=== PATIENT | female | born 1995 | race Caucasian/White ===

== ENCOUNTER 2019-01-13 07:34 | Emergency (ER) | payer OTHER ==
--- NOTE | 2019-01-13 07:45 | ED ---
Abdominal Pain/Female - HPI Summary HPI Summary: A 23 y/o F who is afebrile presents to ED c/o non-radiating RUQ abd pain onset 0600 when she woke up. The pain has mostly resolved and is rated 1 out of 10 at bedside. At it's worst, the pain was a 6 out of 10. She denies n/v. [facility]: one month ago. Denies risk of . Denies PMHx. No surgeries. Non-smoker. No ETOH. No drugs. - History of Current Complaint Chief Complaint: EDAbdPain Stated Complaint: "ABD PAIN" PER PT Time Seen by Provider: 01/13/19 07:42 Hx Obtained From: Patient Onset/Duration: Lasting Hours, Still Present Timing: Constant Severity Initially: Moderate Severity Currently: Mild Pain Intensity: 1 - currently Pain Scale Used: 0-10 Numeric Location: Discrete At: RUQ Radiates: No Associated Signs and Symptoms: Negative: Nausea, Vomiting Allergies/Adverse Reactions: Allergies Allergy/AdvReac Type Severity Reaction Status Date / Time No Known Allergies Allergy Verified 01/13/19 07:53 Home Medications: Home Medications NK [No Home Medications Reported] 01/13/19 [History Confirmed 01/13/19] PMH/Surg Hx/FS Hx/Imm Hx Previously Healthy: Yes Sensory History: Denies: Hx Legally Blind, Hx Deafness Opthamlomology History: Denies: Hx Legally Blind EENT History: Denies: Hx Deafness Neurological History: Denies: Hx Dementia Infectious Disease History: No Infectious Disease History: Denies: Traveled Outside the [place] in Last 30 Days - Family History Known Family History: Positive: Hypertension, Other - ca Negative: Cardiac Disease, Diabetes - Social History Alcohol Use: None Hx Substance Use: No Hx Tobacco Use: No Review of Systems Negative: Fever Positive: Abdominal Pain. Negative: Vomiting, Nausea All Other Systems Reviewed And Are Negative: Yes Physical Exam - Summary Physical Exam Summary: VITAL SIGNS: Reviewed. GENERAL: Patient is a well-developed and nourished female who is lying comfortable in the stretcher. Patient is not in any acute respiratory distress. HEAD AND FACE: Normocephalic and atraumatic. EYES: PERRLA, EOMI x 2, No injected conjunctiva. EARS: Hearing grossly intact. Ear canals and tympanic membranes are WNL. MOUTH: Oropharynx within normal limits. NECK: Supple, trachea is midline, no adenopathy, no JVD. CHEST: Symmetric, no tenderness at palpation LUNGS: Clear to auscultation bilaterally. No wheezing or crackles. CVS: RRR, S1 and S2 present, no murmurs or gallops appreciated. ABDOMEN: Soft, RUQ tenderness. No signs of distention. Positive bowel sounds. No rebound, no guarding, and no masses palpated. No abdominal bruit or pulsations. EXTREMITIES: FROM in all major joints, no edema, no cyanosis or clubbing. NEURO: Alert and oriented x 3. No acute neurological deficits. Speech is normal. SKIN: Dry and warm Triage Information Reviewed: Yes Vital Signs On Initial Exam: Initial Vitals Temp Pulse Resp BP Pulse Ox 98.1 F 87 16 128/82 100 01/13/19 07:36 01/13/19 07:36 01/13/19 07:36 01/13/19 07:36 01/13/19 07:36 Vital Signs Reviewed: Yes Diagnostics - Vital Signs Vital Signs Temp Pulse Resp BP Pulse Ox 01/13/19 07:36 98.1 F 87 16 128/82 100 - Laboratory Result Diagrams: 01/13/19 07:56 01/13/19 07:56 Lab Statement: Any lab studies that have been ordered have been reviewed, and results considered in the medical decision making process. - Ultrasound No standard instances Ultrasound Interpretation Completed By: Radiologist Summary of Ultrasound Findings: GALLBLADDER US, IMPRESSION: Normal exam. Re-Evaluation - Re-Evaluation 1 Re-Evaluation Time: 09:25 Change: Improved Comment: Discussing results with patient and plan for discharge. Abdominal Pain Fem Course/Dx - Course Course Of Treatment: This patient is a 23-year-old female who presents to the emergency department with chief complaint of having right upper quadrant pain since this morning. She also reports that the symptoms have improved since this morning. Denies nausea or vomiting. IV access was obtained. We ordered blood work and an US report. Blood test results are without any significant abnormality. beta hCG is negative. Right upper quadrant ultrasound impression: Negative exam. Since the patient is asymptomatic at this point, and blood tests are within normal limits, I will discharge the patient home to follow-up with primary care physician. The patient is hemodynamically stable, alert oriented 3. I discussed all the findings and test results with the patient. Patient was instructed to return to the emergency room immediately if any of the symptoms return worsens. Plan of care was discussed with the patient and she understands and agrees. All questions were answered to patient satisfaction. There were no further complaints or concerns. Lung exam before discharge: CTA B/L. Good air exchange. No wheezing or crackles heard. CVS: S1 and S2 present. No murmurs appreciated. Patient is alert and oriented x 3. Patient is hemodynamically stable. Patient will be discharged home with follow up PCP in the next 2-3 days - Diagnoses Differential Diagnosis: Positive: Constipation, Gall Bladder Disease Provider Diagnoses: Upper abdominal pain Discharge - Sign-Out/Discharge Documenting (check all that apply): Patient Departure - D/C Patient Received Moderate/Deep Sedation with Procedure: No - Discharge Plan Condition: Stable Disposition: HOME Patient Education Materials: Acute Abdominal Pain (ED) Referrals: [facility] [Outside] - 3 Days Additional Instructions: FOLLOW UP WITH YOUR PRIMARY CARE PROVIDER WITHIN 3 DAYS. RETURN TO THE ED FOR ANY WORSENING OR NEW SYMPTOMS. - Billing Disposition and Condition Condition: STABLE Disposition: Home - Attestation Statements Document Initiated by Lucina: Yes Documenting Scribe: Mica Lawrence Provider For Whom Eloyibe is Documenting (Include Credential): Dr. Jalen Whitney MD Scribe Attestation: Mica Watson scribed for Dr. Jalen Whitney MD on 01/13/19 at 1822. Scribe Documentation Reviewed: Yes Provider Attestation: The documentation as recorded by the Mica sellers accurately reflects the service I personally performed and the decisions made by , Dr. Jalen Whitney MD Status of Scribe Document: Viewed
[2019-01-13 08:15] LABS: ABS Monocytes 0.5 10^3/ul (0-0.8); ABS Neutrophils 2.1 10^3/ul (1.5-7.7); Eosinophil % 0.7 %; Hematocrit 38 % (35-47); Hemoglobin 12.6 g/dL (12.0-16.0); Lymphocyte % 42.2 %; Mean Corpuscular HGB Conc 33 g/dL (31-36); Mean Corpuscular Hemoglobin 29 pg (27-31); Mean Corpuscular Volume 88 fL (80-97); Mean Platelet Volume 9.4 fL (7.4-10.4); Platelet Count 191 10^3/uL (150-450); Red Blood Count 4.37 10^6 /uL (3.70-4.87); Red Cell Distribution Width 14 % (10.5-15); White Blood Count 4.7 10^3/uL (3.5-10.8)
[2019-01-13 08:28] LABS: ALT 15 U/L (7-52); AST 21 U/L (13-39); Albumin 4.1 g/dL (3.2-5.2); Albumin/Globulin Ratio 1.5 (1-3); Alkaline Phosphatase 32 U/L (34-104); Anion Gap 9 mmol/L (2-11); BUN/Creatinine Ratio 18.7 (8-20); Blood Urea Nitrogen 17 mg/dL (6-24); C Reactive Protein 3.02 mg/L (<8.01); CO2 Carbon Dioxide 23 mmol/L (22-32); Chloride 107 mmol/L (101-111); EGFR African American 92.7 (>60); EGFR Non-African American 76.6 (>60); Globulin 2.8 g/dL (2-4); Glucose 87 mg/dL (70-100); HCG Pregnancy < 0.60 mIU/mL; Sodium 139 mmol/L (135-145); Total Protein 6.9 g/dL (6.4-8.9)
[2019-01-13 09:52] VITALS: BP 115/74
== END 2019-01-13 09:51 | disposition home or self-care (01) ==
LOC: ED 07:34
DX: R10.11 Right upper quadrant pain (principal)
CPT/HCPCS: 36415; 76705; 80053; 83605; 83690; 84702; 85025; 86140; 99282